=== PATIENT | male | born 1955 | race Caucasian/White ===

== ENCOUNTER 2022-03-20 10:59 | Outpatient (CLI) | payer SELFPAY ==
--- NOTE | 2022-03-20 11:14 | CT_ITS ---
WS: [id number] CTA OF THE CHEST WITH PULMONARY EMBOLISM PROTOCOL TECHNIQUE: High-resolution contrast enhanced CTA of the chest with coronal and sagittal reformatted i mages with pulmonary embolism protocol. MIP images are also reviewed. CLINICAL INFORMATION: DYSPNEA/ELEVATED D DIMER COMPARISON: None. DLP: 554.[address] scans at [facility] use at least one of these dose optimization techniques: automated e xposure control; mA and/or kV adjustment per patient size (includes targeted exams where dose is matc hed to clinical indication); or iterative reconstruction. FINDINGS: Proximal main pulmonary arteries are normal. Segmental and subsegmental pulmonary arteries are normal . No filling defects to indicate pulmonary embolus.No acute pulmonary infiltrates. No focal pneumonia or pleural fluid. No suspicious pulmonary parenchymal opacities. Slight bibasilar atelectasis. Normal caliber ascending thoracic aorta. Normal descending thoracic aorta. No mediastinal or hilar ly mphadenopathy. No axillary lymphadenopathy.Normal GE junction.Partially visualized hepatomegaly and s plenomegaly. CT/CT angio chest PE protcl [id number] IMPRESSION: 1. No evidence of pulmonary embolus. 2. No acute pulmonary infiltrates. No focal pneumonia or pleural fluid. 3. No mediastinal or hilar lymphadenopathy. 4. Mild chronic emphysematous changes with a few blebs and bulla 5. Partially visualized hepatomegaly and splenomegaly. 6. No other suspicious findings.
[2022-03-20] MEDS: iohexol 350 mg/mL 100 mL Btl IV (11:33)
[2022-03-20 12:29] LABS: Blood Urea Nitrogen 34 mg/dL (8-23); Glomerular Filtration Rate 47.1 mL/min (90-130)
== END 2022-03-20 11:00 | disposition home or self-care (01) ==
LOC: RAD 11:02
PROVIDERS: PCP Family Medicine; Visit Provider Family Medicine
DX: R79.89 Other specified abnormal findings of blood chemistry (principal); R06.00 Dyspnea, unspecified; R16.2 Hepatomegaly with splenomegaly, not elsewhere classified
CPT/HCPCS: 71275; 82565; 84520

== ENCOUNTER 2022-06-24 06:57 | Outpatient (CLI) | payer MEDICARE, SELFPAY ==
--- NOTE | 2022-06-24 07:37 | CT_ITS ---
WS: [id number] CT ABDOMEN AND PELVIS NONCONTRAST HISTORY: KIDNEY MASS, RIGHT. TECHNIQUE: Imaging performed through the abdomen and pelvis. Coronal and sagittal reformats are submi tted. All CT scans at [facility] use at least one of these dose optimization techniques: auto mated exposure control; mA and/or kV adjustment per patient size (includes targeted exams where dose is matched to clinical indication); or iterative reconstruction. DLP: 1131.32 mGy.cm COMPARISON: Ultrasound RIGHT upper quadrant 03/25/2022 Lower thorax: Very mild tree-in-bud opacification at the LEFT lung base probably representing an area of pneumonitis. There are a few small cysts in the lower lung field related to emphysema. Consistent with centrilobular emphysema. Liver: Normal size liver. No bile duct dilatation. Mild heterogeneity related to hepatic steatosis wi th areas of sparing. Gallbladder: Mildly contracted with no adjacent inflammation. Pancreas: Normal size and attenuation. Normal pancreatic duct. No pancreatitis or mass. Spleen: Normal. Adrenal glands: Normal. No mass. Right kidney: Normal size kidney. No obstruction or calcification. This study is not adequate to excl ude renal mass as indicated by the history. Study was performed without IV contrast. Very mildly lobu lar contour of the kidney. Left kidney: No obstruction or calcification. Aorta: Mild atherosclerosis abdominal aorta with no aneurysm. No free fluid, intraperitoneal air or significant lymphadenopathy. GI tract: Stomach is well distended with food products. No small bowel obstruction. Prior appendectom y. No significant diverticular disease. Abdominal wall: Negative. No hernia. Pelvis: Normal. Osseous structures: Unremarkable. CT/CT abdomen pelvis wo con [id number] IMPRESSION: 1. Renal mass cannot be excluded on noncontrast CT of the kidneys. There is ve ry slightly lobulated contour of the RIGHT kidney. To evaluate for a renal mass CT should be performed with and without contrast or MRI with and without contr ast. 2. Chronic emphysema. 3. Contracted gallbladder with no adjacent inflammation. Probably due to nonfa sting state. 4. No renal calcifications or obstruction. 5. Prior appendectomy.
== END 2022-06-24 06:58 | disposition home or self-care (01) ==
LOC: RT 07:00
PROVIDERS: PCP Family Medicine; Visit Provider Family Medicine
DX: N28.89 Other specified disorders of kidney and ureter (principal); J44.9 Chronic obstructive pulmonary disease, unspecified; Q42.8 Congenital absence, atresia and stenosis of other parts of large intestine
CPT/HCPCS: 74176; 94010; 94726; 94729

== ENCOUNTER 2022-09-10 11:00 | Outpatient (CLI) | payer MEDICARE, SELFPAY ==
--- NOTE | 2022-09-10 11:17 | CT_ITS ---
WS: [id number] CT ABDOMEN AND PELVIS WITH AND WITHOUT CONTRAST HISTORY: KIDNEY MASS TECHNIQUE: Unenhanced 5 mm axial imaging first performed through the abdomen. Post contrast imaging t hrough the abdomen and pelvis. Oral contrast has not been provided. Sagittal and coronal reformats a re submitted. All CT scans at [facility] use at least one of these dose optimization techniqu es: automated exposure control; mA and/or kV adjustment per patient size (includes targeted exams whe re dose is matched to clinical indication); or iterative reconstruction. CONTRAST: Omnipaque 350; 95 mL IV. DLP: 985.30 mGy.cm COMPARISON: CT 06/24/2022. Chronic emphysema Normal size heart. No pericardial effusion. Small hiatal hernia. RIGHT kidney: Normal size RIGHT kidney. Very minimal perinephric stranding. Mild bulging of the conto ur in the lower pole. There is no abnormal enhancement. Normal appearance of the cortex and the under lying medullary portion of the kidney. No obstruction. LEFT kidney: Normal. No mass or obstruction. Liver, spleen, portal vein, gallbladder, pancreas and adrenal glands are negative. Mild atheroscleros is aorta. Minimally distended stomach. No small bowel obstruction. Prior appendectomy. Mildly tortuous overlapp ing loops of distal colon. A few diverticula. No acute diverticulitis or obstruction. No adenopathy o r free air. No ascites. No destructive bone lesions. CT/CT abdomen pelvis wo/w [id number] IMPRESSION: 1. No RIGHT renal mass identified. Slight bulge of the normal renal contour wa s responsible for the findings on the prior renal ultrasound 03/25/2022. There a re no enhancing masses. No renal obstruction. 2. No ascites or adenopathy.
[2022-09-10 13:45] LABS: Blood Urea Nitrogen 17 mg/dL (8-23); Glomerular Filtration Rate 60.8 mL/min (90-130)
== END 2022-09-10 11:01 | disposition home or self-care (01) ==
LOC: RAD 11:12
PROVIDERS: PCP Family Medicine; Visit Provider Family Medicine
DX: N28.89 Other specified disorders of kidney and ureter (principal)
CPT/HCPCS: 74178; 82565; 84520; Q9967

== ENCOUNTER → 2023-04-20 09:49 | Outpatient (BNVA) | payer MEDICARE, SELFPAY | PROVIDERS: PCP Family Medicine; Visit Provider Internal Medicine Rheumatology | DX: Z11.59 Encounter for screening for other viral diseases (principal); M19.041 Primary osteoarthritis, right hand; M19.071 Primary osteoarthritis, right ankle and foot; Z79.899 Other long term (current) drug therapy; Z11.1 Encounter for screening for respiratory tuberculosis; J43.9 Emphysema, unspecified; Z12.2 Encounter for screening for malignant neoplasm of respiratory organs; R06.09 Other forms of dyspnea; Z87.891 Personal history of nicotine dependence; R94.2 Abnormal results of pulmonary function studies | CPT/HCPCS: 36415; 73130; 73630; 80076; 82306; 82565; 85025; 86480; 86704; 86803; 87340; 87522; 99204 ==

== ENCOUNTER 2023-06-17 07:13 | Outpatient (CLI) | payer MEDICARE, SELFPAY ==
--- NOTE | 2023-06-17 08:00 | USCV_ITS ---
Alejandro Anne Age: 68 Gender: M : 1955 Exam Date: 06/17/2023 07:32 Ordering Phys: Thanh Goss MD Technologist: Exam Location: [facility] [place] Indication: sob BP: 140 / 80 HR: 77 Rhythm: Sinus Technical Quality: Adequate MEASUREMENTS (Male / Female) Normal Values 2D ECHO LV Diastolic Diameter PLAX 4.8 cm 4.2 - 5.9 / 3.9 - 5.3 cm LV Systolic Diameter PLAX 2.5 cm IVS Diastolic Thickness 1.2 cm 0.6 - 1.0 / 0.6 - 0.9 cm IVS Systolic Thickness 1.6 cm LVPW Diastolic Thickness 1.2 cm 0.6 - 1.0 / 0.6 - 0.9 cm LVPW Systolic Thickness 1.4 cm LVOT Diameter 2.0 cm LV Ejection Fraction 2D Teich 77.2 % LV Ejection Fraction MOD 2C 71.7 % LV Ejection Fraction 2C AL 71.4 % LA Diameter 3.2 cm M-MODE Aortic Annulus Diameter 3.4 cm LA Ao Ratio MM 1.0 MV E Point Septal Separation 1.5 cm DOPPLER AV Peak Velocity 217.0 cm/s LVOT Peak Velocity 127.0 cm/s AV Area Cont Eq vti 2.2 cm squared AV Area Cont Eq pk 1.8 cm squared MV Area PHT 4.9 cm squared Mitral E to A Ratio 0.9 MV E' Velocity 67.0 cm/s Mitral E to MV E' Ratio 12.4 Mitral E to LV E' Lateral Ratio 11.2 Mitral E to LV E' Septal Ratio 14.1 TR Peak Velocity 166.0 cm/s TR Peak Gradient 11.0 mmHg TV Peak E Velocity 109.0 cm/s Right Atrial Pressure 3.0 mmHg Pulmonary Artery Systolic Pressu 14.0 mmHg PV Peak Velocity 139.0 cm/s FINDINGS Left Ventricle Normal left ventricular size and systolic function, EF 72 %. No regional wall motion abnormalities. Mild left ventricular hypertrophy. Grade I/IV diastolic dysfunction (abnormal relaxation filling pattern), normal to mildly elevated filling pressures. Right Ventricle The right ventricle is normal in size and function. Right Atrium The right atrium is normal in size. Left Atrium The left atrium is normal in size. Mitral Valve No gross abnormalities noted Aortic Valve Mild to moderate aortic valve calcification. Aortic valve sclerosis. Tricuspid Valve Trace tricuspid valve regurgitation. Pulmonic Valve No gross abnormalities noted Pericardium Normal pericardium without effusion. Aorta Normal ascending aorta dimension. IVC The inferior vena cava appears normal. CONCLUSIONS Normal left ventricular size and systolic function, EF 72 %. No regional wall motion abnormalities. Mild left ventricular hypertrophy. Grade I/IV diastolic dysfunction (abnormal relaxation filling pattern), normal to mildly elevated filling pressures. Features of aortic valve sclerosis. Mild to moderate aortic valve calcification. Trace tricuspid valve regurgitation. Estimated pulmonary artery peak systolic pressure within normal limits There is no pericardial effusion. There are no intracardiac masses. No similar previous studies are available for comparison Dr Lupe Gerber MD [facility] (Electronically Signed) Final Date: 18 June 2023 17:16 S
--- NOTE | 2023-06-17 08:45 | CT_ITS ---
WS: [id number] LDCT LUNG CANCER SCREENING TECHNIQUE: Noncontrast CT of the chest with coronal and sagittal reformatted images. CLINICAL INFORMATION: Cancer Screen COMPARISON: CTA 03/20 DLP: 74.91 mGy.cm DIvol: Mean CTDIvol: 1.50 (mGy) All CT scans at [facility] use at least one of these dose optimization techniques: automat ed exposure control; mA and/or kV adjustment per patient size (includes targeted exams where dose is matched to clinical indication); or iterative reconstruction. FINDINGS: Mild chronic emphysematous changes with a few blebs and bulla. No acute pulmonary infiltrates. No f ocal pneumonia or pleural fluid. Subpleural nodule RIGHT upper lobe measuring 3 mm. Tiny noncalcified nodule LEFT upper lobe anteriorly. Tiny nodule along the RIGHT fissure. No suspicious pulmonary pare nchymal abnormalities. Normal caliber thoracic aorta. No mediastinal or hilar lymphadenopathy. No axillary lymphadenopathy. Adrenal glands are normal. Normal GE junction. IMPRESSION: CT/CT lung screening [id number] LUNG-RADS: 2-Benign Appearance or Behavior FOLLOW UP: 12 Month: Continue annual screening with LDCT
== END 2023-06-17 07:14 | disposition home or self-care (01) ==
LOC: RAD 07:13
PROVIDERS: PCP Family Medicine; Visit Provider Internal Medicine Pulmonary Disease
DX: R06.02 Shortness of breath (principal); Z12.2 Encounter for screening for malignant neoplasm of respiratory organs; Z87.891 Personal history of nicotine dependence; I35.8 Other nonrheumatic aortic valve disorders; I51.7 Cardiomegaly; I51.89 Other ill-defined heart diseases; L40.50 Arthropathic psoriasis, unspecified; L40.9 Psoriasis, unspecified; N18.31 Chronic kidney disease, stage 3a; Z79.899 Other long term (current) drug therapy; Z79.52 Long term (current) use of systemic steroids
CPT/HCPCS: 36415; 71271; 80076; 82565; 85025; 86140; 93306; 99214

== ENCOUNTER → 2023-06-18 08:50 | Outpatient (BNVA) | payer MEDICARE, SELFPAY | PROVIDERS: PCP Family Medicine; Visit Provider Internal Medicine Pulmonary Disease | DX: R94.2 Abnormal results of pulmonary function studies (principal); J43.2 Centrilobular emphysema; Z12.2 Encounter for screening for malignant neoplasm of respiratory organs; R06.09 Other forms of dyspnea | CPT/HCPCS: 99214 ==

== ENCOUNTER → 2024-02-25 14:31 | Outpatient (BNVA) | payer MEDICARE, SELFPAY | PROVIDERS: PCP Family Medicine; Visit Provider Internal Medicine Rheumatology | DX: Z79.899 Other long term (current) drug therapy (principal); L40.50 Arthropathic psoriasis, unspecified; L40.9 Psoriasis, unspecified; N18.31 Chronic kidney disease, stage 3a; Z11.1 Encounter for screening for respiratory tuberculosis | CPT/HCPCS: 36415; 84550; 99214 ==

== ENCOUNTER 2024-05-23 11:27 | Outpatient (CLI) | payer MEDICARE, SELFPAY ==
[2024-05-23 12:15] LABS: Basophils # 0.1 10^3/uL (0.0-0.1); Basophils % 0.9 %; Eosinophils # 0.4 10^3/uL (0.0-0.8); Eosinophils % 6.3 %; Hematocrit 39.6 % (37-53); Lymphocytes % 30.1 %; Mean Corpuscular HGB Conc 33.3 g/dL (30-55); Mean Corpuscular Hemoglobin 30.2 pg (27-33); Mean Corpuscular Volume 90.6 fl (82-101); Mean Platelet Volume 11.8 fL (7.4-10.4); Monocytes # 1.1 10^3/uL (0.2-0.9); Monocytes % 16.4 %; Neutrophils # 3.01 10^3/uL (1.8-7.7); Nucleated Red Blood Cells % 0 %; Platelet Count 252 10^3/cmm (157-399); Red Blood Count 4.37 10^6/uL (3.85-5.65); White Blood Count 6.54 10^3/uL (3.29-11.43)
[2024-05-23 12:39] LABS: Alanine Aminotransferase 28 U/L (0-41); Albumin Level 4.1 g/dL (3.5-5.2); Alkaline Phosphatase 48 U/L (40-130); Aspartate Amino Transferase 26 U/L (0-40); C Reactive Protein 3.2 mg/L (0.0-4.9); Globulin 2.9 g/dL (1.3-4.6); Total Bilirubin 0.8 mg/dL (0.15-1.2)
[2024-05-23 12:44] LABS: Erythrocyte Sedimentation Rate 14 mm/hr (0-10)
== END 2024-05-23 11:28 | disposition home or self-care (01) ==
LOC: LAB 11:28
PROVIDERS: PCP Family Medicine; Visit Provider Internal Medicine Rheumatology
DX: L40.50 Arthropathic psoriasis, unspecified (principal); Z79.899 Other long term (current) drug therapy
CPT/HCPCS: 36415; 80076; 82565; 85025; 85651; 86140

== ENCOUNTER 2024-09-28 14:30 | Outpatient (CLI) | payer MEDICARE, SELFPAY ==
[2024-09-28 15:45] LABS: Basophils # 0.1 10^3/uL (0.0-0.1); Basophils % 0.8 %; Eosinophils # 0.2 10^3/uL (0.0-0.8); Hematocrit 37.6 % (37-53); Lymphocytes # 3.1 10^3/uL (0.8-4.8); Lymphocytes % 35.7 %; Mean Corpuscular HGB Conc 32.7 g/dL (30-55); Mean Corpuscular Hemoglobin 30.2 pg (27-33); Mean Corpuscular Volume 92.4 fl (82-101); Mean Platelet Volume 11.9 fL (7.4-10.4); Monocytes % 11.6 %; Neutrophils # 4.31 10^3/uL (1.8-7.7); Neutrophils % 49.6 %; Nucleated Red Blood Cells % 0 %; Platelet Count 278 10^3/cmm (157-399); Red Blood Count 4.07 10^6/uL (3.85-5.65); Red Cell Distribution Width 14.5 % (12.1-15.1); White Blood Count 8.69 10^3/uL (3.29-11.43)
[2024-09-28 15:52] LABS: Erythrocyte Sedimentation Rate 26 mm/hr (0-10)
[2024-09-28 16:03] LABS: Alanine Aminotransferase 23 U/L (0-41); Albumin Level 4.2 g/dL (3.5-5.2); Alkaline Phosphatase 60 U/L (40-130); Aspartate Amino Transferase 23 U/L (0-40); Globulin 2.8 g/dL (1.3-4.6); Glomerular Filtration Rate 66.8 mL/min (90-130)
== END 2024-09-28 14:31 | disposition home or self-care (01) ==
LOC: LAB 14:32
PROVIDERS: PCP Family Medicine; Visit Provider Internal Medicine Rheumatology
DX: Z79.899 Other long term (current) drug therapy (principal); L40.50 Arthropathic psoriasis, unspecified
CPT/HCPCS: 36415; 80076; 82565; 85025; 85651; 86140

== ENCOUNTER 2024-11-22 07:00 | Outpatient (CLI) | payer MEDICARE, SELFPAY ==
--- NOTE | 2024-11-22 07:12 | CT_ITS ---
WS: [id number] CT NECK WITH CONTRAST HISTORY: CONGENITAL MALFORMATIONS OF OTHER ENDOCRINE GLANDS, left-sided neck cyst recently drained surgically. TECHNIQUE: Contiguous 2 mm axial images are performed through the neck with intravenous contrast. Sagittal and coronal reformats are also submitted. All CT scans at [facility] use at least one of these dose optimization techniques: automated exposure control; mA and/or kV adjustment per patient size (includes targeted exams where dose is matched to clinical indication); or iterative reconstruction. CONTRAST: CONTRAST: Omnipaque 350; 100 mL IV. DLP: 166.77 mGy.cm COMPARISON: None available. Nasopharynx, oropharynx, hypopharynx and larynx are unremarkable. No soft tissue masses or abnormal enhancement. No cyst or mass noted along the LEFT neck at the site of surgery. Torus tubarius and fossa of Rosenmuller and parapharyngeal fat are normal. No significant lymphadenopathy is identified. Thyroid gland and salivary glands are normally enhancing with no masses. No osseous abnormalities. Visualized portions of the skull base demonstrate no abnormalities. Orbits and globes are within normal limits. No soft tissue masses. Visualized paranasal sinuses and mastoid air cells are normal. Emphysematous changes at the lung apices. CT/CT neck w con* [id number] IMPRESSION: 1. No recurrent cyst or neck mass identified. 2. No adenopathy along the cervical chains. 3. No laryngeal mass.
[2024-11-22 07:43] LABS: Blood Urea Nitrogen 22 mg/dL (8-23); Glomerular Filtration Rate 66.8 mL/min (90-130)
[2024-11-22] MEDS: iohexol 350 mg/mL 500 mL Btl (per mL) IV (07:53)
== END 2024-11-22 07:01 | disposition home or self-care (01) ==
PROVIDERS: PCP Family Medicine; Visit Provider Specialist
DX: Q89.2 Congenital malformations of other endocrine glands (principal); J43.9 Emphysema, unspecified
CPT/HCPCS: 70491; 82565; 84520

== ENCOUNTER → 2024-11-24 09:27 | Outpatient (BNVA) | payer MEDICARE, SELFPAY | PROVIDERS: PCP Family Medicine; Visit Provider Internal Medicine Rheumatology | DX: L40.50 Arthropathic psoriasis, unspecified (principal); L40.9 Psoriasis, unspecified; Z79.899 Other long term (current) drug therapy; N18.31 Chronic kidney disease, stage 3a | CPT/HCPCS: 99214 ==

== ENCOUNTER 2025-03-14 07:23 | Outpatient (CLI) | payer MEDICARE, SELFPAY ==
[2025-03-14 08:02] LABS: Hematocrit 40.5 % (37-53); Hemoglobin 13.50 g/dL (11.27-16.99); Mean Corpuscular HGB Conc 33.3 g/dL (30-55); Mean Corpuscular Hemoglobin 30.6 pg (27-33); Mean Corpuscular Volume 91.8 fl (82-101); Nucleated Red Blood Cells % 0 %; Platelet Count 243 10^3/cmm (157-399); Red Blood Count 4.41 10^6/uL (3.85-5.65); White Blood Count 6.89 10^3/uL (3.29-11.43)
[2025-03-14 08:12] LABS: Alanine Aminotransferase 23 U/L (0-41); Albumin Level 4.3 g/dL (3.5-5.2); Alkaline Phosphatase 56 U/L (40-130); Aspartate Amino Transferase 27 U/L (0-40); Globulin 3.0 g/dL (1.3-4.6); Total Protein 7.3 g/dL (6.6-8.7)
== END 2025-03-14 07:24 | disposition home or self-care (01) ==
LOC: LAB 07:24
PROVIDERS: PCP Family Medicine; Visit Provider Internal Medicine Rheumatology
DX: Z79.899 Other long term (current) drug therapy (principal)
CPT/HCPCS: 36415; 80076; 82565; 85025; 85651; 86140

== ENCOUNTER 2025-03-24 12:44 | Outpatient (CLI) | payer MEDICARE, SELFPAY ==
[2025-03-24 15:01] LABS: Blood Urea Nitrogen 21 mg/dL (8-23)
== END 2025-03-24 12:45 | disposition home or self-care (01) ==
PROVIDERS: PCP Family Medicine; Visit Provider Internal Medicine Rheumatology
DX: Z79.899 Other long term (current) drug therapy (principal)
CPT/HCPCS: 36415; 82565; 84520

== ENCOUNTER → 2025-06-20 12:27 | Outpatient (BNVA) | payer MEDICARE, SELFPAY | PROVIDERS: PCP Family Medicine; Visit Provider Internal Medicine Rheumatology | DX: L40.50 Arthropathic psoriasis, unspecified (principal); L40.9 Psoriasis, unspecified; Z79.899 Other long term (current) drug therapy; N18.31 Chronic kidney disease, stage 3a | CPT/HCPCS: 36415; 80076; 82565; 85025; 85651; 86140; 99214 ==